=== PATIENT | male | born 1955 | race Caucasian/White ===

== ENCOUNTER → 2016-06-20 | Outpatient (CLI) | payer BC ==
--- NOTE | 2016-06-20 12:17 | DIAGNOSTIC IMAGING REPORT ---
CHEST 2 VIEWS ROUTINE CLINICAL HISTORY: R06.02 Exertional shortness of [id number] COMPARISON STUDY: No previous studies for comparison. FINDINGS: The heart is mildly enlarged. There is aortic tortuosity. There is evidence for underlying interstitial lung disease with a subpleural predominance. There is no overt failure. There are no pleural effusions.[ IMPRESSION: Evidence for underlying interstitial/fibrotic lung disease with a peripheral/subpleural predominance. Electronically signed by: Antoine Cooper M.D. 06/20/2016 12:16 PM Dictated Date/Time: 06/20/2016 12:15 PM
== END | disposition home or self-care (01) ==
LOC: C.RADBC 10:47
PROVIDERS: ATTEND Physician Assistant
DX: R06.02 Shortness of breath (principal); J84.10 Pulmonary fibrosis, unspecified

== ENCOUNTER → 2016-07-06 | Outpatient (CLI) | payer BC ==
[~2016-07-06] MED LIST: OPTIRAY 320 IV PRN; PATIENT'S ALLERGY INFO NEEDS ENTERED STA
--- NOTE | 2016-07-06 11:14 | DIAGNOSTIC IMAGING REPORT ---
CHEST CT WITH CONTRAST CT DOSE: 491.07 mGycm HISTORY: Short of breath. J84.9 Interstitial lung diseasehigh [id number] TECHNIQUE: Multiaxial CT images of the chest were performed following the intravenous administration of contrast. COMPARISON: Chest 06/20/2016. FINDINGS: Mild peripheral bronchiectasis most pronounced within the right lung base and left upper lobe anteriorly. No pneumothorax. No pleural effusions. There is peripheral honeycombing with interstitial thickening most pronounced within the lung bases, right greater than left. This is consistent with pulmonary fibrosis. No focal lung consolidations to suggest pneumonia. No suspicious lytic or blastic osseous lesions. Hepatic steatosis. The visualized spleen and adrenal glands are unremarkable. Normal caliber thoracic aorta. The heart is normal in size. The central pulmonary arteries are patent. A few mildly enlarged mediastinal and bilateral hilar lymph nodes. Dominant right peritracheal lymph node measures 2.0 x 1.0 cm. Bilateral coronary artery calcifications. IMPRESSION: 1. Above findings consistent with pulmonary fibrosis/usual interstitial pneumonitis. 2. Mild mediastinal and bilateral hilar lymphadenopathy which is nonspecific. 3. Hepatic steatosis. Electronically signed by: Jamie Denis M.D. 07/06/2016 11:13 AM Dictated Date/Time: 07/06/2016 11:08 AM
== END | disposition home or self-care (01) ==
LOC: C.CTS 10:31
PROVIDERS: ATTEND Internal Medicine Pulmonary Disease
DX: J84.9 Interstitial pulmonary disease, unspecified (principal)